=== PATIENT | male | born 1995 | race Caucasian/White ===

== ENCOUNTER 2017-03-14 10:11 | Emergency (ER) | payer BC, OTHER ==
[2017-03-14 10:25] VITALS: RESP 18
[2017-03-14] MEDS ORDERED: ONDANSETRON 4 MG/2 ML VIAL IVP STA (10:32)
[2017-03-14] MEDS ORDERED: HYDROmorphone 1 MG/ML 1 ML SYRINGE IVP STA (10:32)
[2017-03-14] MEDS ORDERED: SODIUM CHLORIDE 0.9% 1,000 ML IV STA (10:32)
--- NOTE | 2017-03-14 10:34 | ED ---
General Adult HPI - General Chief complaint: Abdominal Pain Stated complaint: Abd Pain Time Seen by Provider: 03/14/17 10:27 Source: patient, RN notes reviewed Mode of arrival: ambulatory Limitations: no limitations - History of Present Illness Initial comments: Patient is a 22-year-old male who presents emergency room today with a chief complaint of right-sided flank pain that began earlier this morning. He does admit that approximately a month ago he had similar symptoms went away in a day. He does admit that he was diagnosed urinary tract infection. States never had kidney stones. He does admit that he feels some pain in the right lower quadrant radiates down to the right groin. Also admits to a "muscle spasm " type pain to the right side of his lower back. Patient admits to nausea. Denies any symptoms at this time. Patient denies any recent fever, chills, shortness of breath, chest pain, numbness or tingling, dysuria or hematuria, constipation or diarrhea, headaches or visual changes, or any other complaints. - Related Data Home Medications Medication Instructions Recorded Confirmed Ibuprofen [Motrin] 400 mg PO Q6HR PRN 03/14/17 03/14/17 Methocarbamol [Robaxin] 500 mg PO DAILY PRN 03/14/17 03/14/17 Previous Rx's Medication Instructions Recorded Hydrocodone/Acetaminophen [[place] 1 each PO Q6HR PRN #20 tab 03/14/17 5-325] Ibuprofen [Motrin] 800 mg PO Q6HR #30 tab 03/14/17 Ondansetron Odt [Zofran ODT] 4 mg PO Q8HR PRN #20 tab 03/14/17 Tamsulosin [Flomax] 0.4 mg PO DAILY #10 cap 03/14/17 Allergies Allergy/AdvReac Type Severity Reaction Status Date / Time No Known Allergies Allergy Verified 03/14/17 11:02 Review of Systems ROS Statement: Those systems with pertinent positive or pertinent negative responses have been documented in the HPI. ROS Other: All systems not noted in ROS Statement are negative. Past Medical History Past Medical History: Asthma History of Any Multi-Drug Resistant Organisms: None Reported Past Surgical History: No Surgical Hx Reported Past Psychological History: No Psychological Hx Reported Smoking Status: Never smoker Past Alcohol Use History: None Reported Past Drug Use History: None Reported General Exam - General Exam Comments Initial Comments: General: The patient is awake and alert, in no distress, and does not appear acutely ill. Eye: Pupils are equal, round and reactive to light, extra-ocular movements are intact. No nystagmus. There is normal conjunctiva bilaterally. No signs of icterus. Ears, nose, mouth and throat: There are moist mucous membranes and no oral lesions. Neck: The neck is supple, there is no tenderness or JVD. Cardiovascular: There is a regular rate and rhythm. No murmur, rub or gallop is appreciated. Respiratory: Lungs are clear to auscultation, respirations are non-labored, breath sounds are equal. No wheezes, stridor, rales, or rhonchi. Gastrointestinal: Soft, non-distended, non-tender abdomen without masses or organomegaly noted. There is no rebound or guarding present. No CVA tenderness. Bowel sounds are unremarkable. Musculoskeletal: Normal ROM, no tenderness. Strength 5/5. Sensation intact. Pulses equal bilaterally 2+. Neurological: A&O x 3. CN II-XII intact, There are no obvious motor or sensory deficits. Coordination appears grossly intact. Speech is normal. Skin: Skin is warm and dry and no rashes or lesions are noted. Psychiatric: Cooperative, appropriate mood & affect, normal judgment. Limitations: no limitations Course Vital Signs 03/14/17 10:21 Temperature 97.4 F L Pulse Rate 62 Respiratory 18 Rate Blood Pressure 135/76 O2 Sat by Pulse 97 Oximetry Medical Decision Making - Medical Decision Making Patient reexamined at this time shows no signs of distress is feeling much better after oral given here in emergency room. His labs been reviewed shows 12 ,000 white count. No sign for infection and the urinalysis. His CT of the abdomen and pelvis does show a 3 mm stone in the right UVJ. Patient will be discharged home advised follow-up the family doctor he states he is from out of town he is from [place]. He'll be given medications of [place], ibuprofen, Flomax, and Zofran for his symptoms. He is advised return here to the emergency room symptoms increase worsen or for any other concerns. He states understanding and is in agreement. - Lab Data Result diagrams: 03/14/17 11:02 03/14/17 11:02 Lab Results 09/14/17 09/14/17 09/14/17 Range/Units 11:02 11:02 11:36 WBC 12.7 H (3.8-10.6) k/uL RBC 5.31 (4.30-5.90) m/uL Hgb 14.8 (13.0-17.5) gm/dL Hct 43.7 (39.0-53.0) % MCV 82.3 (80.0-100.0) fL MCH 27.8 (25.0-35.0) pg MCHC 33.8 (31.0-37.0) g/dL RDW 13.2 (11.5-15.5) % Plt Count 390 (150-450) k/uL Neutrophils % 62 % Lymphocytes % 28 % Monocytes % 6 % Eosinophils % 1 % Basophils % 1 % Neutrophils # 7.8 H (1.3-7.7) k/uL Lymphocytes # 3.6 (1.0-4.8) k/uL Monocytes # 0.7 (0-1.0) k/uL Eosinophils # 0.2 (0-0.7) k/uL Basophils # 0.1 (0-0.2) k/uL Sodium 143 (137-145) mmol/L Potassium 4.1 (3.5-5.1) mmol/L Chloride 106 (98-107) mmol/L Carbon Dioxide 24 (22-30) mmol/L Anion Gap 13 mmol/L BUN 15 (9-20) mg/dL Creatinine 0.95 (0.66-1.25) mg/dL Est GFR (MDRD) Af Amer >60 (>60 ml/min/1.73 sqM) Est GFR (MDRD) Non-Af >60 (>60 ml/min/1.73 sqM) Glucose 114 H (74-99) mg/dL Calcium 9.9 (8.4-10.2) mg/dL Total Bilirubin 0.3 (0.2-1.3) mg/dL AST 28 (17-59) U/L ALT 53 (21-72) U/L Alkaline Phosphatase 127 H (38-126) U/L Total Protein 8.0 (6.3-8.2) g/dL Albumin 4.7 (3.5-5.0) g/dL Amylase 37 (30-110) U/L Lipase 58 (23-300) U/L Urine Color Yellow Urine Appearance Cloudy (Clear) Urine pH 6.0 (5.0-8.0) Ur Specific [place] 1.019 (1.001-1.035) Urine Protein Negative (Negative) Urine Glucose (UA) Negative (Negative) Urine Ketones Negative (Negative) Urine Blood Trace H (Negative) Urine Nitrite Negative (Negative) Urine Bilirubin Negative (Negative) Urine Urobilinogen 2.0 (<2.0) mg/dL Ur Leukocyte Esterase Trace H (Negative) Urine RBC 2 (0-5) /hpf Urine WBC 5 (0-5) /hpf Amorphous Sediment Occasional H (None) /hpf Urine Mucus Rare H (None) /hpf Disposition Clinical Impression: Kidney stone on right side Disposition: HOME SELF-CARE Condition: Good Instructions: Kidney Stones (ED) Additional Instructions: Please use medication as discussed. Please follow-up with family doctor in the next 2 days of symptoms have not improved. Please return to emergency room if the symptoms increase or worsen or for any other concerns. Prescriptions: Hydrocodone/Acetaminophen [[place] 5-325] 1 each PO Q6HR PRN #20 tab PRN Reason: Pain Ibuprofen [Motrin] 800 mg PO Q6HR #30 tab Ondansetron Odt [Zofran ODT] 4 mg PO Q8HR PRN #20 tab PRN Reason: Nausea Tamsulosin [Flomax] 0.4 mg PO DAILY #10 cap Referrals: Nonstaff,Physician [Primary Care Provider] - 1-2 days Time of Disposition: 12:06
--- NOTE | 2017-03-14 11:11 | XR ---
EXAMINATION TYPE: XR KUB DATE OF EXAM: 03/14/2017 COMPARISON: NONE HISTORY: Pain TECHNIQUE: Single supine KUB image of the abdomen is obtained FINDINGS: Small bowel demonstrates no evidence for dilatation or air fluid levels. Gas and fecal material is seen in non-distended colon. No convincing evidence for pneumoperitoneum. No unusual calcifications. The lung bases are clear. The osseous structures are intact. IMPRESSION: 1. Overall nonobstructive bowel gas pattern.
[2017-03-14 11:14] LABS: Basophils # (A) 0.1 k/uL (0-0.2); Basophils % (A) 1 %; CH 27.8; CHCM 33.9; Eosinophils # (A) 0.2 k/uL (0-0.7); Eosinophils % (A) 1 %; HCT 43.7 % (39.0-53.0); HDW 2.56; HGB 14.8 gm/dL (13.0-17.5); Luc % (Auto) 2; Lymphocytes # (A) 3.6 k/uL (1.0-4.8); Lymphocytes % (A) 28 %; MCH 27.8 pg (25.0-35.0); MCHC 33.8 g/dL (31.0-37.0); MCV 82.3 fL (80.0-100.0); Mean Platelet Volume 6.7; Monocytes # (A) 0.7 k/uL (0-1.0); Monocytes % (A) 6 %; Neutrophils # (A) 7.8 k/uL (1.3-7.7); Neutrophils % (A) 62 %; RBC 5.31 m/uL (4.30-5.90); RDW 13.2 % (11.5-15.5); WBC 12.7 k/uL (3.8-10.6); WBC (Perox) 11.75
[2017-03-14] MEDS ORDERED: KETOROLAC 30 MG/ML 1 ML VIAL IVP STA (11:30)
[2017-03-14 11:32] LABS: ALT 53 U/L (21-72); AST 28 U/L (17-59); Alkaline Phosphatase 127 U/L (38-126); Amylase 37 U/L (30-110); Anion Gap 13 mmol/L; Blood Urea Nitrogen 15 mg/dL (9-20); Calcium 9.9 mg/dL (8.4-10.2); Carbon Dioxide 24 mmol/L (22-30); Chloride 106 mmol/L (98-107); Glucose 114 mg/dL (74-99); Non-African American GFR(MDRD) >60 (>60 ml/min/1.73 sqM); Potassium 4.1 mmol/L (3.5-5.1); Sodium 143 mmol/L (137-145); Total Bilirubin 0.3 mg/dL (0.2-1.3)
[2017-03-14 11:47] LABS: Amorphous Sediment,Urine Occasional /hpf; Appearance,Urine Cloudy (Clear); Bilirubin,Urine Negative (Negative); Glucose,Urine (UA) Negative (Negative); Ketones,Urine Negative (Negative); Leukocyte Esterase,Urine Trace (Negative); Mucus,Urine Rare /hpf; Nitrite,Urine Negative (Negative); Particle Count 5053; Protein,Urine Negative (Negative); RBC,Urine 2 /hpf (0-5); Specific Gravity,Urine 1.019 (1.001-1.035); UA Billing (MACRO vs. MICRO) MICRO; WBC,Urine 5 /hpf (0-5)
--- NOTE | 2017-03-14 11:50 | CT ---
EXAMINATION TYPE: CT abdomen pelvis wo con DATE OF EXAM: 03/14/2017 COMPARISON: NONE HISTORY: abdominal pain Examination of the solid and hollow viscera is limited given the lack of contrast. FINDINGS: LUNG BASES: No evidence for nodule. No evidence for infiltrate. LIVER/GB: The gallbladder is unremarkable. No space-occupying hepatic lesion. PANCREAS: No pancreatic mass identified. No inflammatory process seen. SPLEEN: No evidence for splenomegaly. No intrasplenic lesions seen. ADRENALS: No adrenal nodules identified. No evidence for thickening. KIDNEYS: 3 mm calculus right UVJ resulting in mild right-sided hydroureteronephrosis. No additional c alculi seen. The left kidney is unremarkable. BOWEL: Appendix has a normal appearance. No evidence of bowel obstruction. No inflammatory process. Lymph nodes: No evidence for adenopathy greater than 1 cm. Abdominal aorta: Atheromatous changes seen. No evidence for aneurysm. Genital organs: No significant abnormality. Other: No significant abnormality. IMPRESSION: 3 mm calculus right UVJ resulting in mild right-sided hydroureteronephrosis.
[2017-03-14 12:59] VITALS: BP 116/59; PULSE 61; TEMP 98.3
== END 2017-03-14 12:45 | disposition home or self-care (01) ==
LOC: EC 10:11
DX: N20.0 Calculus of kidney (principal); R11.0 Nausea
CPT/HCPCS: 36415; 80053; 82150; 83690; 85025; 81001; 74000; 74176; 99284; 96374; 96375 ×2; 96361; J2405; J1885; J1170

== ENCOUNTER 2017-07-30 20:16 | Emergency (ER) | payer BC, OTHER ==
--- NOTE | 2017-07-30 21:23 | XR ---
EXAMINATION TYPE: XR chest 2V DATE OF EXAM: 07/30/2017 COMPARISON: NONE HISTORY: Chest pain TECHNIQUE: Frontal and lateral views of the chest are obtained. FINDINGS: Heart and mediastinum are normal. Lungs are clear. Diaphragm is normal. Bony thorax appear s normal. IMPRESSION: Normal chest
[2017-07-30] MEDS ORDERED: PROMETHAZ-COD 6.25-10 MG/5 ML 5 ML CUP PO STA (22:06)
--- NOTE | 2017-07-30 22:08 | ED ---
URI HPI - General Chief Complaint: Upper Respiratory Infection Stated Complaint: congestion Time Seen by Provider: 07/30/17 21:32 Source: patient, RN notes reviewed, old records reviewed Mode of arrival: ambulatory Limitations: no limitations - History of Present Illness Initial Comments: 22-year-old males here with his cousin with similar symptoms of cough congestion for one week. He reported in taking over the counter medicine. He's a non-smoker. He reported history of asthma but does not use these in [place]. Denies any chest pain shortness of breath. He said it's been a productive cough. - Related Data Home Medications Medication Instructions Recorded Confirmed Methocarbamol [Robaxin] 500 mg PO DAILY PRN 03/14/17 07/30/17 Previous Rx's Medication Instructions Recorded Ibuprofen [Motrin] 800 mg PO Q6HR #30 tab 03/14/17 Ondansetron Odt [Zofran ODT] 4 mg PO Q8HR PRN #20 tab 03/14/17 Albuterol Inhaler [Ventolin Hfa 1 - 2 puff INHALATION Q6HR PRN #1 07/30/17 Inhaler] inhaler Levofloxacin [Levaquin] 750 mg PO DAILY #5 tab 07/30/17 Promethaz-Cod 6.25-10 mg/5 ml 5 ml PO Q6HR PRN #120 ml 07/30/17 [Phenergan with Codeine] methylPREDNISolone Dose Pack 4 mg PO DIRECTED #21 package 07/30/17 [Medrol Dose Pack] Allergies Allergy/AdvReac Type Severity Reaction Status Date / Time No Known Allergies Allergy Verified 07/30/17 20:40 Review of Systems ROS Statement: Those systems with pertinent positive or pertinent negative responses have been documented in the HPI. ROS Other: All systems not noted in ROS Statement are negative. Past Medical History Past Medical History: Asthma History of Any Multi-Drug Resistant Organisms: None Reported Past Surgical History: No Surgical Hx Reported Past Psychological History: No Psychological Hx Reported Smoking Status: Never smoker Past Alcohol Use History: None Reported Past Drug Use History: None Reported General Exam - General Exam Comments Initial Comments: Well appearing 22-year-old male. No cute distress. Limitations: no limitations General appearance: alert, in no apparent distress Head exam: Present: atraumatic, normocephalic, normal inspection Eye exam: Present: normal appearance, PERRL, EOMI. Absent: scleral icterus, conjunctival injection, periorbital swelling ENT exam: Present: normal exam, mucous membranes moist Neck exam: Present: normal inspection. Absent: tenderness, meningismus, lymphadenopathy Respiratory exam: Present: normal lung sounds bilaterally. Absent: respiratory distress, wheezes, rales, rhonchi, stridor Cardiovascular Exam: Present: regular rate, normal rhythm, normal heart sounds. Absent: systolic murmur, diastolic murmur, rubs, gallop, clicks Extremities exam: Present: normal inspection, full ROM, normal capillary refill. Absent: tenderness, pedal edema, joint swelling, calf tenderness Back exam: Present: normal inspection Neurological exam: Present: alert, oriented X3, CN II-XII intact Psychiatric exam: Present: normal affect, normal mood Course Vital Signs 07/30/17 07/30/17 07/30/17 20:38 22:00 22:23 Temperature 97.4 F L 98.7 F Pulse Rate 84 78 Respiratory 18 20 18 Rate Blood Pressure 132/77 132/80 O2 Sat by Pulse 98 98 Oximetry Medical Decision Making - Medical Decision Making Patient presents today with a bracelet or infection. Patient's lungs are clear. He does have a history of asthma feels somewhat timely takes a deep breath on his chest. Chest x-ray was negative influenza test negative. Patient will be discharged with some more regimented schedule and with anabiotic steroids inhaler and cough syrup. I'll questions answered. - Lab Data Lab Results 07/30/17 Range/Units 20:41 Influenza Type A RNA Not Detected (Not Detectd) Influenza Type B (PCR) Not Detected (Not Detectd) Disposition Clinical Impression: Bronchitis Disposition: HOME SELF-CARE Condition: Good Instructions: Upper Respiratory Infection (ED) Additional Instructions: Patient should take the medicines as prescribed. Follow-up with PCP. Return to the emergency department if any alarming signs or symptoms occur. Prescriptions: Albuterol Inhaler [Ventolin Hfa Inhaler] 1 - 2 puff INHALATION Q6HR PRN #1 inhaler PRN Reason: Shortness Of Breath Levofloxacin [Levaquin] 750 mg PO DAILY #5 tab methylPREDNISolone Dose Pack [Medrol Dose Pack] 4 mg PO DIRECTED #21 package Promethaz-Cod 6.25-10 mg/5 ml [Phenergan with Codeine] 5 ml PO Q6HR PRN #120 ml PRN Reason: Cough Referrals: Nonstaff,Physician [Primary Care Provider] - 1-2 days Time of Disposition: 22:04
[2017-07-30 22:24] VITALS: BP 132/80; PULSE 78; RESP 18; TEMP 98.7
== END 2017-07-30 22:23 | disposition home or self-care (01) ==
LOC: EC 20:16
DX: J40 Bronchitis, not specified as acute or chronic (principal)
CPT/HCPCS: 71046; 87502; 99284